=== PATIENT | male | born 1960 | race Two or more races ===

== ENCOUNTER 2020-01-04 18:59 | Emergency (ER) | payer OTHER ==
[~2020-01-04] VITALS: Ht 167.6 cm; Wt 90.9 kg
[2020-01-04 19:06] VITALS: BP 137/75
== END 2020-01-04 20:27 | disposition home or self-care (01) ==
LOC: ER 19:00
DX: U07.1 COVID-19 (principal); R51.9 Headache, unspecified; R09.81 Nasal congestion; M79.10 Myalgia, unspecified site
CPT/HCPCS: 36415; 87635; 99281; 99283